=== PATIENT | female | born 1945 | race Caucasian/White ===

== ENCOUNTER → 2024-07-27 12:26 | Outpatient (REF) | payer OTHER, SELFPAY | LOC: HWRCS 12:26 | PROVIDERS: ATTENDING PHYSICIAN Nuclear Medicine Nuclear Cardiology; FAMILY PHYSICIAN Physician Assistant Medical | DX: R00.1 Bradycardia, unspecified (principal); I34.0 Nonrheumatic mitral (valve) insufficiency | CPT/HCPCS: 93306 ==

== ENCOUNTER → 2024-09-19 13:02 | Outpatient (REF) | payer OTHER, SELFPAY | LOC: WDC 13:02 | PROVIDERS: ATTENDING PHYSICIAN Internal Medicine Hematology & Oncology; FAMILY PHYSICIAN Family Medicine | DX: Z78.0 Asymptomatic menopausal state (principal); Z12.31 Encounter for screening mammogram for malignant neoplasm of breast; C50.212 Malignant neoplasm of upper-inner quadrant of left female breast | CPT/HCPCS: 77063; 77067 ==

== ENCOUNTER → 2025-09-21 12:24 | Outpatient (REF) | payer OTHER, SELFPAY | LOC: WDC 12:24 | PROVIDERS: ATTENDING PHYSICIAN Internal Medicine Hematology & Oncology; FAMILY PHYSICIAN Physician Assistant Medical | DX: Z12.31 Encounter for screening mammogram for malignant neoplasm of breast (principal); Z85.3 Personal history of malignant neoplasm of breast; C50.212 Malignant neoplasm of upper-inner quadrant of left female breast | CPT/HCPCS: 77063; 77067 ==